=== PATIENT | female | born 1985 | race Caucasian/White ===

== ENCOUNTER 2024-05-03 11:27 | Emergency (ER) | payer BC, MEDICAID, OTHER | END 2024-05-03 13:54 | disposition home or self-care (01) | LOC: JD.ED 11:27 | DX: O22.23 Superficial thrombophlebitis in pregnancy, third trimester (principal); O99.413 Diseases of the circulatory system complicating pregnancy, third trimester; I83.93 Asymptomatic varicose veins of bilateral lower extremities; Z88.0 Allergy status to penicillin; Z3A.36 36 weeks gestation of pregnancy | CPT/HCPCS: 93971-26-RT; 93971-RT; 99283 ==

== ENCOUNTER 2024-06-07 06:17 | Inpatient (IN) | payer BC ==
[2024-06-07] MEDS: Lactated Ringers 1,000 ML IV SCH (05:50)
[2024-06-07 06:08] LABS: BASOPHILS PERCENT AUTO 0.2 % (0.0-1.0); EOSINOPHILS ABSOLUTE AUTO 0.2 K/mm3 (0.0-0.4); EOSINOPHILS PERCENT AUTO 1.6 % (0.0-6.0); HEMATOCRIT 35.6 % (37.0-47.0); HEMOGLOBIN 12.2 gm/dl (12.0-16.0); IMMATURE GRAN ABSOLUTE AUTO 0.03 K/mm3 (0.00-0.05); IMMATURE GRAN PERCENT AUTO 0.3 % (0.0-0.4); LYMPHOCYTES ABSOLUTE AUTO 1.8 K/mm3 (1.0-4.8); LYMPHOCYTES PERCENT AUTO 19.6 % (24.0-44.0); MEAN CORPUSCULAR HEMOGLOBIN 30.4 pg (28.0-32.0); MEAN CORPUSCULAR HGB CONC 34.3 g/dl (32.0-36.0); MEAN CORPUSCULAR VOLUME 88.8 fl (83.0-99.0); MEAN PLATELET VOLUME 10.7 fl (9.4-12.3); MONOCYTES ABSOLUTE AUTO 0.7 K/mm3 (0.0-0.8); MONOCYTES PERCENT AUTO 7.8 % (0.0-8.0); NEUTROPHILS ABSOLUTE AUTO 6.5 K/mm3 (1.8-7.7); NEUTROPHILS PERCENT AUTO 70.5 % (41.0-71.0); PLATELET COUNT,PLT 172 K/mm3 (150-400); RED BLOOD CELL COUNT 4.01 M/mm3 (4.10-5.30); WHITE BLOOD CELL COUNT,WBC 9.18 K/mm3 (3.9-11.3)
[~2024-06-07 06:17] MED LIST: Sodium Chloride 0.9% 10 ML Syringe FLUSH PRN
[2024-06-07] MEDS ORDERED: Oxytocin/0.9 % Sodium Chloride 30 UNIT/500 ML BAG IV SCH (06:45)
[2024-06-07] MEDS: Terbutaline 1 MG/ML SDV SUBCUT ONE (06:50)
[2024-06-07] MEDS ORDERED: Lactated Ringers 1,000 ML IV SCH ×3 (07:00→07:15)
[2024-06-07] MEDS ORDERED: Sodium Chloride 0.9% 10 ML Syringe FLUSH PRN ×2 (07:07→07:09)
[2024-06-07] MEDS ORDERED: ceFAZolin 2 GM in Sodium Chloride 0.9% 50 ML IV ONE (07:09)
[2024-06-07] MEDS ORDERED: ePHEDrine 50 MG/ML SDV ONE ×2 (07:10→07:43)
[2024-06-07] MEDS ORDERED: Morphine PF 10 MG/10 ML SDV ONE (07:10)
[2024-06-07] MEDS: Metoclopramide 10 MG/2 ML SDV IVPUSH ONE (07:20)
[2024-06-07] MEDS: Citric Acid/Sodium Citrate Solution 30 ML Cup PO ONE (07:20)
[2024-06-07] MEDS ORDERED: Ondansetron 4 MG/2 ML SDV ONE (07:43)
[2024-06-07] MEDS ORDERED: ceFAZolin 2 GM Vial ONE (07:43)
[2024-06-07] MEDS ORDERED: Lactated Ringers 1,000 ML ONE (07:44)
[2024-06-07] MEDS ORDERED: Phenylephrine 1% 10 MG/ML SDV ONE (07:45)
[2024-06-07] MEDS ORDERED: Carboprost Tromethamine 250 MCG/1 mL Vial ONE (07:57)
[2024-06-07] MEDS ORDERED: Ketorolac 30 MG/ML SDV ONE (08:22)
[2024-06-07] MEDS ORDERED: ePHEDrine 50 MG/ML SDV IVPUSH PRN (08:45)
[2024-06-07] MEDS ORDERED: Naloxone 0.4 MG/ML SDV IVPUSH PRN (08:45)
[2024-06-07] MEDS: Sodium Chloride 0.9% 10 ML Syringe FLUSH SCH ×3 (10:04→16:17)
[2024-06-07] MEDS: Acetaminophen 325 MG Tab PO SCH (10:05)
[2024-06-07] MEDS: Ibuprofen 800 MG Tab PO SCH (10:05)
[2024-06-07] MEDS: diphenhydrAMINE 50 MG/ML SDV IVPUSH PRN (11:43)
[2024-06-07] MEDS: Dextrose 5%-Lactated Ringers 1,000 ML IV SCH (12:16)
[2024-06-07] MEDS: ceFAZolin 2 GM Vial IVPUSH ONE (16:17)
[2024-06-07] MEDS: Ondansetron 4 MG/2 ML SDV IVPUSH PRN (17:27)
[2024-06-08 05:31] LABS: HEMATOCRIT 27.7 % (37.0-47.0); HEMOGLOBIN 9.3 gm/dl (12.0-16.0); MEAN CORPUSCULAR HGB CONC 33.6 g/dl (32.0-36.0); MEAN CORPUSCULAR VOLUME 89.4 fl (83.0-99.0); MEAN PLATELET VOLUME 10.4 fl (9.4-12.3); PLATELET COUNT,PLT 140 K/mm3 (150-400); WHITE BLOOD CELL COUNT,WBC 9.78 K/mm3 (3.9-11.3)
[2024-06-08] MEDS: Ferrous Sulfate 324 MG Tab.EC PO SCH (08:03)
[2024-06-08] MEDS: oxyCODONE 5 MG Tab PO PRN (17:21)
[2024-06-09] MEDS: Docusate Sodium 100 MG Cap PO PRN (11:51)
== END 2024-06-09 12:54 | disposition home or self-care (01) | DRG 540 ==
LOC: JD.OBCHECK 06:17 → JD.OB 06:18 → JD.OBCHECK 07:16 → EDSTATUS 07:30 → JD.OB 07:55
PROVIDERS: ADMIT Obstetrics & Gynecology; ATTEND Obstetrics & Gynecology
PROC: 10D00Z1 Extraction of Products of Conception, Low, Open Approach (ICD-10-PCS; principal; 2024-06-07 07:30)
DX: O99.214 Obesity complicating childbirth (principal); E66.09 Other obesity due to excess calories; D62 Acute posthemorrhagic anemia; O90.81 Anemia of the puerperium; Z3A.40 40 weeks gestation of pregnancy; Z37.0 Single live birth
CPT/HCPCS: 01961; 36415; 51702; 59025; 59412; 85025; 85027; 86850; 86900; 86901; A9270-GY; J0690; J1200; J1885; J2274; J2371; J2405; J2765; J3490; J7120; J7121